=== PATIENT | male | born 1995 | race African-American/Black ===

== ENCOUNTER 2021-01-09 18:07 | Emergency (ER) | payer SELFPAY ==
[~2021-01-09] VITALS: Ht 182.9 cm; Wt 67.0 kg
[2021-01-09] MEDS ORDERED: KETOROLAC 60MG/2ML VIAL IM ONE (22:00)
[2021-01-09 22:50] LABS: CLARITY URINE CLOUDY (CLEAR); COLOR URINE YELLOW (YELLOW); KETONES URINE TRACE (NEGATIVE); LEUKOCYTE ESTERASE URINE 3+ (NEGATIVE); NITRITE URINE NEGATIVE (NEGATIVE); OCCULT BLOOD URINE 2+ (NEGATIVE); PROTEIN URINE 1+ (NEGATIVE); SPECIFIC GRAVITY URINE 1.029 (1.005-1.030)
[2021-01-09] MEDS ORDERED: LIDOCAINE HCL 1% 20ML VIAL (Pyxis) INJ INFIL ONE (23:00)
[2021-01-09] MEDS ORDERED: CEFTRIAXONE SODIUM 1 G/VIAL IM ONE (23:00)
[2021-01-09] MEDS ORDERED: DOXY100C42 MT (23:26)
[2021-01-09] MEDS ORDERED: IBUP-2029 MT (23:26)
[2021-01-09] MEDS ORDERED: HYDROCODONE/ACETAMINOPHEN 5/325MG TABLET PO ONE (23:30)
[2021-01-09] MEDS ORDERED: DOXYCYCLINE HYCLATE 100MG CAPSULE PO ONE (23:30)
[2021-01-09 23:37] VITALS: BP 121/64
== END 2021-01-09 23:39 | disposition home or self-care (01) ==
LOC: ER 18:07
DX: N50.812 Left testicular pain (principal)
CPT/HCPCS: 76870; 81003; 87086; 93976; 96372; 99284; J0696; J1885; J3490

== ENCOUNTER 2021-02-03 23:44 | Emergency (ER) | payer SELFPAY ==
[~2021-02-03] VITALS: Ht 188 cm; Wt 71.2 kg
[~2021-02-03 23:44] MED LIST: DOXY-326 MT; IBUP-2029 MT
[2021-02-03 23:51] VITALS: BP 110/63
[2021-02-04] MEDS ORDERED: DOXY100C5 MT (00:44)
== END 2021-02-04 01:50 | disposition home or self-care (01) ==
LOC: ER 23:44
DX: A64 Unspecified sexually transmitted disease (principal)
CPT/HCPCS: 99282

== ENCOUNTER 2023-10-08 19:52 | Emergency (ER) | payer MEDICAID, OTHER ==
[~2023-10-08] VITALS: Ht 188 cm; Wt 82.0 kg
[~2023-10-08 19:52] MED LIST changes: -DOXY-326 MT; +DOXY-456 MT; +DOXY100C5 MT
[2023-10-08 20:14] VITALS: O2SAT 99
[2023-10-08] MEDS: IBUPROFEN 400MG TABLET PO ONE (23:06)
[2023-10-09] MEDS ORDERED: IBUP-2028 MT (00:03)
[2023-10-09 00:28] VITALS: BP 125/66; PULSE 68; RESP 18; TEMP 98
== END 2023-10-09 00:32 | disposition home or self-care (01) ==
LOC: ER 19:52
DX: S90.121A Contusion of right lesser toe(s) without damage to nail, initial encounter (principal); X58.XXXA Exposure to other specified factors, initial encounter; Y93.89 Activity, other specified; Y92.89 Other specified places as the place of occurrence of the external cause; Y99.8 Other external cause status
CPT/HCPCS: 73630; 99283

== ENCOUNTER 2023-10-11 19:46 | Emergency (ER) | payer OTHER ==
[~2023-10-11] VITALS: Ht 188 cm; Wt 84.0 kg
[~2023-10-11 19:46] MED LIST changes: +IBUP-2028 MT
[2023-10-11 20:00] VITALS: BP 132/95; PULSE 82; RESP 18; TEMP 98; O2SAT 100
[2023-10-11 20:35] LABS: CLARITY URINE CLEAR (CLEAR); COLOR URINE DARK YELLOW (YELLOW); GLUCOSE URINE NEGATIVE (NEGATIVE); KETONES URINE 2+ (NEGATIVE); LEUKOCYTE ESTERASE URINE NEGATIVE (NEGATIVE); NITRITE URINE NEGATIVE (NEGATIVE); OCCULT BLOOD URINE TRACE (NEGATIVE); PROTEIN URINE 1+ (NEGATIVE); SPECIFIC GRAVITY URINE 1.033 (1.005-1.030)
[2023-10-11 20:50] LABS: BACTERIA URINE 1+; RBC URINE 0-2 /hpf (0-2); SQUAMOUS EPITHELIAL CELL URINE RARE /lpf (RARE/1+); WBC URINE 0-2 /hpf (0-2)
[2023-10-11] MEDS: PENICILLIN G BENZATHINE 2,400,000 UNITS/4ML SYR IM ONE (23:15)
== END 2023-10-12 01:12 | disposition home or self-care (01) ==
LOC: ER 19:54
DX: A64 Unspecified sexually transmitted disease (principal); A53.9 Syphilis, unspecified
CPT/HCPCS: 99283; 86592; 81003; 96372; J0561